=== PATIENT | female | born 1995 | race Caucasian/White ===

== ENCOUNTER 2017-06-11 21:58 | Emergency (ER) | payer OTHER ==
[~2017-06-11] VITALS: Ht 167.6 cm; Wt 100.0 kg
[2017-06-11 21:59] VITALS: BP 167/98; PULSE 75; RESP 20; O2SAT 100
--- NOTE | 2017-06-11 22:22 | ED.REPORT ---
HPI-Allergic Reaction Date of Service Jun 11, 2017 ED Provider: Vic Dorsey MD 22 y/o female with a hx of intracranial HTN presents to the ED complaining of facial swelling onset an hour ago. Associated sx include tingling sensation in her face and lips, tightness in her throat and difficulty swallowing. She associates her sx with using a new bath balm since her sx came on as soon as she got out of the shower. She took Benadryl twice prior to arrival. She denies itching, hives, wheezing and hx of asthma. Denies any symptoms elsewhere including no irritation or swelling of her general mucosae She does not smoke. Nursing Notes Stated Complaint: FACE SWELLING Chief Complaint: Allergic Reaction Nursing Notes Reviewed: Yes Allergies: Coded Allergies: Sulfa (Sulfonamide Antibiotics) (Verified Allergy, Mild, 06/11/17) Scheduled Famotidine (Pepcid) 20 Mg Tablet 20 MG PO BID Loratadine (Claritin) 10 Mg Capsule 10 MG PO DAILY Prednisone (PredniSONE) 20 Mg Tablet 40 MG PO DAILY General Time Seen by MD: 22:14 Chief Complaint Swelling (facial) Hx Obtained From: Patient Arrived By: Walk-in Onset Occurred: 1 - 4 hours ago Symptom Duration: Since onset Progression Since Onset: Gradually improving Severity: Current: No pain currently Severity: Maximum: No pain Recent Healthcare: No recent doctor visit Similar Sx Previous: No Past Medical History Past Medical History Intracranial HTN Past Surgical History none reported Smoking History Never Smoker Social History Other Social History: Good social support Ambulatory Status Independent Review of Systems Reports: facial swelling Reports; tingling sensation in the face Reports: difficulty swallowing Respiratory: Denies: Wheezing Allergy / Immune: Denies: Hives, Itching Complete sys rev & neg: except as marked. Physical Exam Initial Vital Signs Vital Signs (First) Date Time Temp Pulse Resp B/P Pulse Ox O2 Delivery O2 Flow Rate FiO2 06/11/17 21:59 36.9 75 20 167/98 100 Room Air Initial VS: Reviewed Head / Eyes: Atraumatic, Normocephalic Neck: Supple, Non-tender, Full range of motion Abdomen / GI: Soft, Non-tender Extremities: Vascular intact, Neuro intact, No swelling, No tenderness Neurologic: Alert, Oriented, Nonfocal General/Constitutional: Awake, Alert, No acute distress, Cooperative Respiratory / Chest: Atraumatic, Breath sounds NL, Breath sounds = bilat, No respiratory distress, No rales, No rhonchi, No wheezing Cardiovascular: Heart rate NL, Regular rhythm, Heart sounds NL, No gallop, No murmurs, No rubs Skin: Atraumatic, Color NL, No rash, Warm, Dry, Intact, No swelling Interpretation & Diagnostics Lab Results Interpretation Test 06/11/17 23:21 Hold Purple Top Tube Received (Received) Hold Blue Top Tube Received (Received) Hold [place] Top Tube Received (Received) Re-Eval/Medical Decision Med Decision/Clinical Course 22-year-old female with symptoms of allergy, possibly due to a fragrance or other substance in a bath balm. However, the lack of involvement elsewhere despite total body exposure suggest that this is an ingestion and not related to her bath product. Improved after Claritin and Benadryl and Decadron and Pepcid. Home with Pepcid Claritin when necessary Benadryl and a brief steroid course. Source of Hx: Old records Re-Evaluation/Progress : Time of Eval: 23:51 Patient Status: Condition improved Re-Evaluation/Progress Note: Rechecked pt. Discussed lab results, diagnosis and plan to discharge. Pt understands and agrees with the plan. F/U instruction and RTER warning given. All questions addressed. Counseled Regarding: Diagnosis, Lab results, Need for follow-up, When/why to return to ED Discharge & Departure Primary Impression: Allergic reaction Encounter type: initial encounter Qualified Code: T78.40XA - Allergy, unspecified, initial encounter Disposition: Home Discharge Condition All VS Reviewed: Yes Condition: Stable Patient Instructions: General Allergic Reaction (ED) Additional Instructions: It is difficult to pinpoint what might have set this off tonight. I cannot exclude an ingredient in your bath balm, but it seems likely would have some reaction elsewhere on her body if that were so. Or likely is ingestion of a food or preservative or contaminating antibiotic within food. List is long and it is often difficult to figure out what you react to, until you are exposed again and react. Begin prednisone two tabs daily for five days. Begin Claritin daily for two weeks. Begin Pepcid twice daily for two weeks. Follow-up with your doctor in the office. You may use Benadryl additionally if you have symptoms that recur. Return immediately if you have any swelling in her throat, difficulty breathing , speaking, or swallowing. Referrals: Vic Parra DO (PCP) [facility] Scribe Attestation Portions of this note were transcribed by Julisa Flood. I,, personally performed the history, physical exam and medical decision-making;I reviewed and confirmed the accuracy of the information in the transcribed note. Signed by Jas Russell. 06/11/17 copies to: Vic Parra Christopher W MD Jun 11, 2017 22:22 Julisa Flood Jun 12, 2017 00:07
[2017-06-11] MEDS ORDERED: Famotidine Inj 20 MG in IV Premix 1 EACH IV ONE (22:25)
[2017-06-11] MEDS ORDERED: Dexamethasone 10 mg/mL Inj IVPUSH ONE (22:25)
[2017-06-11] MEDS ORDERED: LORA10CA PO (23:57)
[2017-06-11] MEDS ORDERED: PRE20 PO (23:57)
[2017-06-11] MEDS ORDERED: FAMO20T PO (23:57)
[2017-06-12 00:07] VITALS: BP 112/76; PULSE 75; RESP 18; O2SAT 97
== END 2017-06-12 00:11 | disposition home or self-care (01) ==
LOC: SED 21:58
DX: R22.0 Localized swelling, mass and lump, head (principal); T78.49XA Other allergy, initial encounter; X58.XXXA Exposure to other specified factors, initial encounter; Y93.89 Activity, other specified; Y99.8 Other external cause status; Y92.89 Other specified places as the place of occurrence of the external cause; Z86.79 Personal history of other diseases of the circulatory system; Z88.2 Allergy status to sulfonamides
CPT/HCPCS: 96374; 96375; 99284; J1100; J3490